=== PATIENT | female | born 1965 | race Caucasian/White ===

== ENCOUNTER 2018-06-15 19:55 | Emergency (ER) | payer MEDICAID ==
[~2018-06-15] VITALS: Ht 167.6 cm; Wt 75.7 kg
[2018-06-15 20:05] VITALS: BP 129/90; Ht 167.6 cm; Wt 75.7 kg
== END 2018-06-15 23:25 | disposition home or self-care (01) ==
LOC: ED 19:55
DX: T25.421A Corrosion of unspecified degree of right foot, initial encounter (principal); T25.422A Corrosion of unspecified degree of left foot, initial encounter; Z90.09 Acquired absence of other part of head and neck; Y93.89 Activity, other specified; Y92.89 Other specified places as the place of occurrence of the external cause; Y99.8 Other external cause status

== ENCOUNTER 2019-01-24 21:03 | Emergency (ER) | payer SELFPAY ==
[~2019-01-24] VITALS: Ht 167.6 cm; Wt 65.8 kg
[2019-01-24 21:39] VITALS: Ht 167.6 cm; Wt 65.8 kg
[2019-01-25 00:03] VITALS: BP 143/89
== END 2019-01-24 23:40 | disposition home or self-care (01) ==
LOC: ED 21:03
DX: R05 Cough (principal); R07.89 Other chest pain; Z98.890 Other specified postprocedural states
CPT/HCPCS: J7512; Q0092

== ENCOUNTER 2020-07-15 12:41 | Emergency (ER) | payer MEDICAID ==
[~2020-07-15] VITALS: Ht 167.6 cm; Wt 77.6 kg
[2020-07-15 12:47] VITALS: Ht 167.6 cm; Wt 77.6 kg
[2020-07-15 14:02] VITALS: BP 129/109
== END 2020-07-15 14:02 | disposition home or self-care (01) ==
LOC: ED 12:41
DX: S16.1XXA Strain of muscle, fascia and tendon at neck level, initial encounter (principal); Z90.89 Acquired absence of other organs; V43.53XA Car driver injured in collision with pick-up truck in traffic accident, initial encounter; Y93.I9 Activity, other involving external motion; Y99.8 Other external cause status; Y92.488 Other paved roadways as the place of occurrence of the external cause
CPT/HCPCS: Q0092

== ENCOUNTER 2020-12-26 12:54 | Emergency (ER) | payer OTHER, SELFPAY ==
[~2020-12-26] VITALS: Ht 167.6 cm; Wt 65.8 kg
[2020-12-26 12:57] VITALS: Ht 167.6 cm; Wt 65.8 kg
[2020-12-26 14:06] VITALS: BP 120/81
== END 2020-12-26 14:06 | disposition home or self-care (01) ==
LOC: ED 12:54
DX: J02.9 Acute pharyngitis, unspecified (principal); Z20.822 Contact with and (suspected) exposure to COVID-19; Z90.89 Acquired absence of other organs
CPT/HCPCS: U0003